=== PATIENT | female | born 1990 | race Caucasian/White ===

== ENCOUNTER 2024-07-20 08:23 | Outpatient (CLI) | payer BC, SELFPAY ==
--- NOTE | ~2024-07-20 | US_ITS ---
EXAMINATION: US soft tissue head and neck DATE: 07/20/2024 08:44 INDICATION: Posterior neck mass. Abnormal weight gain. TECHNIQUE: Multiple grayscale and Doppler ultrasound images of the head and neck were obtained. COMPARISON: None FINDINGS: In the posterior neck, there is a 5.1 x 1.5 x 5.5 cm subcutaneous mass is isoechoic to norm al subcutaneous fat, consistent with a lipoma. IMPRESSION: 1. 5.5 cm subcutaneous mass in the posterior neck, likely a lipoma. Reviewed, dictated and finalized at location A. SSIONS CLINICIAN
== END 2024-07-20 08:24 | disposition home or self-care (01) ==
LOC: MICIMG 08:23
PROVIDERS: PCP Family Medicine; Visit Provider Student in an Organized Health Care Education/Training Program
DX: R63.5 Abnormal weight gain (principal)
CPT/HCPCS: 76536

== ENCOUNTER 2025-05-07 02:14 | Day surgery (SDC) | payer BC, SELFPAY ==
[2025-05-01 13:45] VITALS: BMI 32.7
--- NOTE | 2025-05-01 13:52 | PC.NURSE ---
Report to the Outpatient Waiting Room, entrance under the green pavilion located off [facility], at time _1000_ on date _[id number]_. Planned Procedure Time: _1200_.? Time changes happen often and if your time is changed the preop area will call you the afternoon before. - You and your visitor will be asked to self-screen and do not enter if you have any COVID symptoms. Please call surgeon if you need to reschedule. - A mask is optional within the hospital at this time. Patients may have clear liquids (water, carbonated beverages, clear teas, apple juice) until 3 hours prior to surgery with a maximum of 20 ounces. - No food from midnight until time of surgery and no smoking, or chewing tobacco (or any form of nicotine). No chewing gum, candy or mints. Take only the following medications with a SIP of water on the morning of surgery: __None____ DO NOT STOP ANY OF YOUR OTHER PRESCRIPTION MEDICATIONS PRIOR TO SURGERY EXCEPT THE FOLLOWING Hold all vitamins and supplements for 3 days per anesthesiologist. Medications to discontinue per physician Date to take last dose Please no make-up, nail paraguayan, hairspray, perfume, deodorant, or body powder the day of surgery.? No jewelry (including any body piercings) or valuables the day of surgery, leave them at home.? Please take a shower or bath the night before, or the morning of, surgery with an antibacterial soap.? Wear comfortable, loose fitting clothing.? - Jewelry must be removed prior to entering the operating room.? Rings and piercings that are not removed may be cut off. - The hospital will not accept responsibility for valuables.? - Please leave all valuables, including medications, at home the day of surgery. If you are going home after surgery, a licensed line haul driver must drive you home.? - NO public transportation without another adult if you receive anesthesia. - We recommend that an adult stay with you for 24 hours following discharge. - We also recommend that you do not drive, make important decision, drink alcoholic beverages, or take any drugs that were not prescribed by your health care provider for at least 24 hours after your discharge time. Follow any additional instructions given to you from your surgeon. Telephone instructions given to __Gwen___and asked if any additional questions and then verbalized understanding. Patient advised to call surgeon office or pre surgery nurse liaison [phone] if any additional questions.
[2025-05-07] VITALS (7 sets, daily range): BP systolic 99–126; BP diastolic 58–80; PULSE 78–97; RESP 16–18; TEMP 36.2; O2SAT 98–100
--- OUTSIDE RECORDS SUMMARY | 2025-05-07 02:17 | XMS_ITS | Clinical Summary ---
Author Organization [facility] Address [address] [place] [address] Phone Care Team Providers Care Automatic Teller Machine Servicer Name Role Phone Unavailable Primary Care Provider Unavailabl e Immunizations Immunization Administration Dates Next Due Covid-19, Mrna, Lnp-s, Pf, 30 Mcg/0.3 Ml Dose (Oly langford) 06/13/2021 Social History Tobacco Use Types Packs/Day Years Used Date Smoking Tobacco: Never Assessed Comments Unknown Sex and Gender Information Value Date Recorded Sex Assigned at Not on file Legal Sex Unknown 03/09/2020 11:31 AM CDT Gender Identity Not on file Sexual Orientation Not on file Plan of Treatment Health Maintenance Due Date Last Done Comments Hepatitis C Virus (HCV) Screening 1990 TdaP Immunization 1990 Hepatitis B Immunization (1 of 3 - 19+ 3-dose series) 11/05/2007 Human Papillomavirus (HPV) Immunization (1 - 3-dose SCDM series) 11/05/2015 SARS-COV-2 Immunization (2023- season) 2024 06/13/2021, 11/21/2020, 10/10/2020 Influenza Immunization (#1) 2025 Respiratory Syncytial Virus (RSV) Immunization (Adult) (1 - 1-dose 75+ series) 11/05/2063 Meningococcal Immunization (ACWY) Aged Out No longer eligible b ased on patient's age to complete this topic Pneumococcal Immunization Combined Aged Out No longer eligible b ased on patient's age to complete this topic Rotavirus Immunization Aged Out No lo nger eligible based on patient's age to complete this topic
--- OUTSIDE RECORDS SUMMARY | 2025-05-07 02:17 | XMS_ITS | Clinical Summary ---
Author Organization [facility] Address [address] [place] [address] Care Team Providers Care Grinding Machine Tender Name Role Phone Katie Quintero MD Primary Care Provider [phone] Source Comments [employer] [facility],non-owned Affiliates and Associated Physician Practices is amultiple site organization consisting of ambulatory clinics and hospital sitesin [place], [place], [place] and [place]. This disclosure is being madepursuant to the Care Everywhere program and may not contain all information available regarding this patient. Last updated 18[employer] Allergies No known active allergies Medications * Be aware that medications may not be up to date on this document. Alwaysverify current medications with the patient. VALACYCLOVIR HCL PO Active Social History Tobacco Use Types Packs/Day Years Used Date Smoking Tobacco: Never Comments Unknown Sex and Gender Information Value Date Recorded Sex Assigned at Not on file Legal Sex Female 8:53 AM RENTAL COUNTER CLERK Gender Identity Not on file Sexual Orientation Not on file Last Filed Vital Signs Vital Sign Reading Time Taken Comments Blood Pressure 108/76 03/09/2017 3:23 PM CDT Pulse 90 03/09/2017 3:23 PM CDT Temperature 36.8 C (98.2 F) 03/09/2017 3:23 PM CDT Respiratory Rate 16 10/13/2016 9:29 AM RENTAL COUNTER CLERK Oxygen Saturation 95% 03/09/2017 3:23 PM CDT Inhaled Oxygen Concentration - - Weight 79.8 kg (176 lb) 03/09/2017 3:23 PM CDT Height 165.1 cm (5' 5) 03/09/2017 3:23 PM CDT Body Mass Index 29.29 03/09/2017 3:23 PM CDT Plan of Treatment Health Maintenance Due Date Last Done Comments HIV SCREENING 11/05/2003 HEPATITIS C SCREENING 10/31/2006 DTAP/TDAP/TD VACCINES (1 - Tdap) 11/05/2007 HEPATITIS B VACCINE (1 of 3 - 19+ 3-dose series) 11/05/2007 HPV VACCINE (1 - 3-dose SCDM series) 11/05/2015 DEPRESSION SCREENING 08/30/2024 COVID-19 VACCINE (1 - 2023-2 5 season) 2025 INFLUENZA VACCINE (#1) 2025 ZOSTER VACCINE (1 of 2) 2038 HIB VACCINE Aged Out No longer eligi ble based on patient's age to complete this topic MENINGOCOCCAL (Group B) VACC INE SHARED DECISION-MAKING Aged Out No longer eligibl e based on patient's age to complete this topic MENINGOCOCCAL GROUPS A/C/Y/W VACCINE Aged Out No longer eligible b ased on patient's age to complete this topic PNEUMOCOCCAL VACCINE Aged Out No long er eligible based on patient's age to complete this topic Insurance [email or web address] Care Teams Grinding Machine Tender Relationship Specialty Start Date End Date Katie Quintero MD [address] [place] [address] PCP - General Family Medicine 10/13/16
--- OUTSIDE RECORDS SUMMARY | 2025-05-07 02:17 | XMS_ITS | Clinical Summary ---
Author Organization [facility] Address [address] [place] [address] Phone Care Team Providers Care Vp Software Support Name Role Phone Katie Quintero MD Primary Care Provider [phone] Christine Diehl MD Unavailable [phone] Allergies No known active allergies Medications 32-jzng-wdmoqr 1-dha (PNV-DHA) 27 mg iron-1 mg -300 mg capsule take 1 capsule by oral route every day 0 0 7 Active Additional Information Patient taking differently: 1 capsule oral Nightly, Reported on 02/01/2022 montelukast (SINGULAIR) 10 mg tablet Take 10 mg by mouth nightly 1 Active budesonide (RHINOCORT AQUA) 32 mcg/actuation nasal spray Administer 1 spray into each nostril nightly 1 Active ELDERBERRY FRUIT AND FLOWER ORAL Take by mouth nightly 1 Active docusate sodium (COLACE) 100 mg capsuleIndicati ons:constipatio n Take 100 mg by mouth nightly Active levonorgestreL (MIRENA) IUD 1 each by intrauterine route once WE SUPPLIED THE DEVICE 03/27/2022 [facility]:[id number] LOT: [id number] EXP: 2 03/27/20 28 Active Active Problems Patient Care Coordination No te Formatting of this note migh t be different from the original. [facility] Anomaly scan 4-20-18 @ 2:30 pt aware Problem Noted Date Diagnosed Date 40 weeks gestation of 01/30/2022 Herpes simplex virus (HSV) infection 01/13/2014 Overview (12/04/2016): HERPES SIMPLEX NOS Term Immunizations Immunization Administration Dates Next Due Influenza, Quadrivalent, Spl it, Preservative Free, Intramuscular 05/16/2018 Tdap 12/26/2021,04/15/2018 Surgical History Surgery Date Site/Laterality Comments WISDOM TOOTH EXTRACTION Right Medical History Medical History Date Comments Hx Other Medical Seasonal allerg ies History of cold sores Anemia Anxiety Family History Medical History Relation Name Comments Coronary artery disease Maternal Grandfather Coronary artery disease; Relation Name Status Comments Maternal Grandfather Social History Tobacco Use Types Packs/Day Years Used Date Smoking Tobacco: Never Smokeless Tobacco: Never Tobacco Cessation:Counseling Given: Not Answered Alcohol Use Standard Drinks/Week Comments No 0 (1 standard drink = 0.6 oz pur e alcohol) [place] Depression Scale Answer Date Recorded [place] Depression Scale Total 5 02/01/2022 The thought of harming myself has occurred to me . Never 02/01/2022 Comments No Sex and Gender Information Value Date Recorded Sex Assigned at Not on file Legal Sex Female 2:08 AM ONLINE ACTIVIST Gender Identity Female 05/02/2021 1:46 PM CDT Sexual Orientation Straight 05/02/2021 1: 46 PM CDT Obstetrics History Para Term AB IAB SAB Ectopic Multiple Livin g Live Births 3 2 2 1 1 0 2 2 Date Outcome GA Total Labor Labor/2nd/3rd Weight Sex Type Anes PTL Radha A1 A5 Name Clin 2017 Term 40w 1d 7h 25m 6h 08m/1h 10m/0h 07m 4.1 kg (9 lb 0.6 oz) M Vag-S pont Epidur al N Livin g 7 7 FARHAN RUTLEDGE Christ ine M., MD Delivery Location:[facility] Facil [facility] ([facility]) 1 SAB 4w0 d 2021 Term 39w 4d 0h 40m 0h 34m/0h 06m 4.4 kg (9 lb 11.2 oz) M Vag-S pont Epidur al N Livin g 7 9 FARHAN RUTLEDGE, Robb Pagan MD Complications:Shoulder Dysto ioana Delivery Location:This Facil ity ([facility]) Last Filed Vital Signs Vital Sign Reading Time Taken Comments Blood Pressure 109/77 12/26/2024 7:24 PM CDT Pulse 109 12/26/2024 7:24 PM CDT Temperature 37.2 C (99 F) 12/26/2024 7:24 PM CDT Respiratory Rate 16 12/26/2024 7:24 PM CDT Oxygen Saturation 97% 12/26/2024 7:24 PM CDT Inhaled Oxygen Concentration - - Weight 88.7 kg (195 lb 8 oz) 12/26/2024 7:24 PM CDT Height 162.6 cm (5' 4.02) 12/26/2024 7:24 PM CD T Body Mass Index 33.54 12/26/2024 7:24 PM CDT Plan of Treatment Health Maintenance Due Date Last Done Comments Hepatitis C Screening 1988 Varicella Vaccines (1 of 2 - 13+ 2-dose series) 2001 Hepatitis B Screening 2006 HPV Vaccines (1 - 3-dose SCDM series) 11/05/2015 Regular Well Visit/Exam 18-64 01/30/2022 01/30/2021 Depression Screening 02/01/2023 02/01/2022 Cervical Cancer Screening 03/18/20232021, 01/30/2021, 06/27/2018, Additional history exists Influenza Vaccine (#1) 2025 , 05/16/2018, 05/31/2017 DTaP/Tdap/Td Vaccine (3 - Td or Tdap) 12/27/2031 12/26/2021, 04/15/2018 Pneumococcal vaccine <65 Aged Out No longer eligible based on patient's age to complete this topic Procedures Procedure Name Priority Date/Time Associated Diagnosis Comments PAP WITH REFLEX TO HIGH RISK HPV Routine 03/18/2022 1:42 PM CDT Screening for malignant neoplasm of the cervix from Last 3 Months or Most Recently Relevant to Health Maintenance Results * Pap with reflex to High Risk HPV (03/18/2022 1:42 PM CDT) Thin prep (Pap test) 03/18/2022 1:42 PM CDT 03/22/2022 8:58 AM CDT Narrative PATHOLOGY [facility] - 03/25/2022 9:14 AM CDT EPIC results best viewed via link to PDF [address] [address] Tele: Marcy Mendoza MD - Home Appliance Tech CYTOLOGY REPORT Note to Patients: This report may contain a detailed description of human tissue sent by a health care provider to the laboratory for pathologic evaluation. The content of this report is essential for diagnosis and may provide important critical findings. This information may be unfamiliar to patients to review without a medical professional present. It is advised that the patient review this report in the presence of a health care provider who can answer questions and explain the details. Patient Name: MARYCRUZ OMALLEY Address: [address] [place] [address] Gender: F : 1990 (Age: 31) Service: Location: N : [id number] [facility] #: [id number] Patient Type: [facility] [place] SPECIMEN Taken: 03/18/2022 Reported: 03/25/2022 Physician(s): Christine Diehl M.D. FINAL DIAGNOSIS: Specimen Type: - ThinPrep Pap w/ reflex HPV Statement of Specimen Adequacy: Source: Cervical/Endocervical - Satisfactory for evaluation - Case screened using computer assisted imaging technology General Categorization: - Negative for intraepithelial lesion or malignancy xbb/03/25/2022 09:14EMILY Maldonado (ASCP) Report Reviewed and Electronically Signed By EMILY Maldonado (ASCP)Clerical Data Follow A; [id number] CLINICAL DIAGNOSIS AND HISTORY Menstrual History: REPORT IMAGES AND/OR SCANNED DOCUMENTS ONLY VIEWABLE IN PDF FORMAT The Pap test is a screening test used to aid in the detection of cervical cancer and its precursors. It should not be the sole means by which malignant and premalignant lesions are diagnosed. Both false negative and false positive results may occur. It also has poor sensitivity for the detection of endometrial lesions and should not be used to evaluate suspected endometrial abnormalities. For these reasons it is most important to obtain Pap tests at regular intervals, as recommended by your physician or nurse practitioner. us Christine Diehl MD LAB CYTOLOGY ORDERABLES Fin al Result PATHOLOGY [facility] Laboratory [address] [place] [address] from Last 3 Months or Most Recently Relevant to Health Maintenance Insurance [facility] Advance Directives For more information, please contact: [phone] * Full Code (Latest Code Status on File) Date Activated Date Inactivated Comments 01/30/2022 8:00 PM 02/01/2022 4:05 PM * Full Code Date Activated Date Inactivated Comments 01/30/2022 2:42 AM 01/30/2022 8:00 PM Full CPR in ca se of cardiopulmonary arrest * Full Code Date Activated Date Inactivated Comments 05/14/2018 5:46 AM 05/16/2018 6:14 PM * Full Code Date Activated Date Inactivated Comments 05/13/2018 1:43 AM 05/14/2018 5:46 AM Full CPR in case of cardiopulmonary arrest Care Teams Vp Software Support Relationship Specialty Start Date End Date Katie Quintero MD PCP - General 01/06/13 Christine Diehl MD [address] [address] Consulting Physician Obstetrics and Gynecology 10/06/21
--- OUTSIDE RECORDS SUMMARY | 2025-05-07 02:17 | XMS_ITS | Encounter Summary ---
Author Organization [facility] Address [address] [place] [address] Care Team Providers Care Accreditation Specialist Name Role Phone Katie Quintero MD Primary Care Provider [phone] Encounter Details Date Type Department Care Team (Late st Contact Info) Description 03/08/2020 Lab Requisition [facility] [address] [place] [address] Michael Wilson MD Social History Tobacco Use Types Packs/Day Years Used Date Smoking Tobacco: Never Comments Unknown Sex and Gender Information Value Date Recorded Sex Assigned at Not on file Legal Sex Female 8:53 AM CAMPGROUND ATTENDANT Gender Identity Not on file Sexual Orientation Not on file documented as of this encounter Plan of Treatment Not on file documented as of this encounter Procedures Procedure Name Priority Date/Time Associated Diagnosis Comments SARS-COV-2 (COVID-19) IN HOUSE Routine 03/07/2020 9:46 AM CDT documented in this encounter Results * SARS-COV-2 (COVID-19) IN HOUSE (03/07/2020 9:46 AM CDT) COVID-19 PCR Not detected Not detected, Invalid 03/08/2020 6:15 PM CDT [facility] Microbiology SPECIMEN FROM NASOPHARYNGEAL STRUCTURE / Unknown Collection / Unknown 03/07/2020 9:46 AM CDT 03/08/2020 12:24 PM CDT Narrative [facility] - 03/08/2020 6:15 PM CDT This nucleic acid amplification assay performance was validated by [facility]. This test has been authorized by the Food and Drug administration (FDA)under an Emergency Use Authorization (EUA). This test has been validated in accordance with the FDA's guidance document Policy for Diagnostic Testing in Laboratories Certified to perform High Complexity Testing under CLIA prior to Emergency Use Authorization for Coronavirus Disease-2019 during the Public Health Emergency issued on October 28, 2019. FDA independent review of this validation is pending. This test is only authorized for the duration of time the declaration that circumstances exist justifying the authorization of emergency use of in vitro diagnostic tests for detection of SARS-CoV-2 virus and/or diagnosis of COVID-19 infection under section 564(b)(1) of the Act, 21 U.S.C 360bbb-3 (b)(1), unless the authorization is terminated or revoked sooner. Michael Wilson MD LAB - MICROBIOLOGY ORDERABL ES Final Result [facility] [address] [place], [place] [id number] [place] [address] documented in this encounter Visit Diagnoses Not on filedocumented in this encounter Additional Health Concerns Infection Onset Date Last Indicated Resolved Time COVID-19 Under Investigation 03/08/2020 03/07/2020 03/08/2020 6:15 PM CDT documented as of this encounter Care Teams Accreditation Specialist Relationship Specialty Start Date End Date Katie Quintero MD [address] [place] [address] PCP - General Family Medicine 10/13/16 documented as of this encounter
--- OUTSIDE RECORDS SUMMARY | 2025-05-07 02:17 | XMS_ITS | Encounter Summary ---
Author Organization [facility] Address [address] [place] [address] Phone Care Team Providers Care Aerial Crop Duster Name Role Phone Unavailable Primary Care Provider Unavailabl e Encounter Details Date Type Department Care Team (Late st Contact Info) Description 08/28/2022 Lab Requisition [facility] [address] [place] [address] Jerry Moss MD [address] [place] [address] [address] [place] [place] [address] Encounter for screening for COVID-19 Social History Tobacco Use Types Packs/Day Years [...] Name Priority Date/Time Associated Diagnosis Comments SARS-COV-2 BY MOLECULAR Routine 08/28/2022 8:35 AM DIRECTOR OF RESEARCH CENTER Encounter for screening for COVID-19 documented in this encounter Results * SARS-COV-2 BY MOLECULAR (08/28/2022 8:35 AM DIRECTOR OF RESEARCH CENTER) SARSCOV2 NOT DETECTED (Referen ce Range for this test is Not Detected ) [facility] THER[facility] FAST DX 08/29/2022 12:21 AM DIRECTOR OF RESEARCH CENTER [facility] Comment:This test was perfor med by a RT-PCR method. Other Non-Phlebotomy Collection / Unknown 08/28/2022 8:35 AM DIRECTOR OF RESEARCH CENTER 08/28/2022 1:19 PM DIRECTOR OF RESEARCH CENTER Narrative [facility] - 08/29/2022 12:21 AM DIRECTOR OF RESEARCH CENTER Authorized Fact Sheets about this test for providers and patients are available at: https://www.fda.gov/medical-devices/zfuonjmcz-gbipwyydim-jkxfqgk-devices/emergen -us e-authorizations us Jerry Moss MD MICROBIOLOGY - GENERAL ORDERAB LES Final Result [facility] [address] [place] [address], [place] documented in this encounter Visit Diagnoses Diagnosis Encounter for screening for COVID-19 documented in this encounter Additional Health Concerns Infection Onset Date Last Indicated Resolved Time COVID - 19 08/28/2022 09/10/2022 09/20/2022 12:1 6 AM DIRECTOR OF RESEARCH CENTER documented as of this encounter
--- OUTSIDE RECORDS SUMMARY | 2025-05-07 02:17 | XMS_ITS | Encounter Summary ---
Author Organization [facility] Address [address] [place] [address] Phone Care Team Providers Care Sourcing Intern Name Role Phone Unavailable Primary Care Provider Unavailabl e Encounter Details Date Type Department Care Team (Late st Contact Info) Description 09/10/2022 Lab Requisition [facility] [address] [place] [address] Jerry Moss MD [address] [place] [address] [address] [place], [place] [id number] Encounter for screening for COVID-19 Social History [...] Associated Diagnosis Comments SARS-COV-2 BY MOLECULAR Routine 09/10/2022 8:37 AM COLD WORKING INSPECTOR Encounter for screening for COVID-19 documented in this encounter Results * SARS-COV-2 BY MOLECULAR (09/10/2022 8:37 AM COLD WORKING INSPECTOR) SARSCOV2 NOT DETECTED (Referen ce Range for this test is Not Detected ) [facility] THERMOFISHER FAST DX 09/11/2022 6:43 AM COLD WORKING INSPECTOR [facility] Comment:This test was perfor med by a RT-PCR method. Other Non-Phlebotomy Collection / Unknown 09/10/2022 8:37 AM COLD WORKING INSPECTOR 09/10/2022 11:36 AM COLD WORKING INSPECTOR Narrative [facility] - 09/11/2022 6:43 AM COLD WORKING INSPECTOR Authorized Fact Sheets about this test for providers and patients are available at: https://www.fda.gov/medical-devices/hfwxzymnw-fubpihqgpx-nzncbyz-devices/emergen -us e-authorizations us Jerry Moss MD MICROBIOLOGY - GENERAL ORDERAB LES Final Result [facility] [address] [place] [address], [place] documented in this encounter Visit Diagnoses Diagnosis Encounter for screening for COVID-19 documented in this encounter Additional Health Concerns Infection Onset Date Last Indicated Resolved Time COVID - 19 08/28/2022 09/10/2022 09/20/2022 12:1 6 AM COLD WORKING INSPECTOR documented as of this encounter
--- OUTSIDE RECORDS SUMMARY | 2025-05-07 02:17 | XMS_ITS | Encounter Summary ---
Author Organization [facility] Address [address] [place] [address] Phone Care Team Providers Care Coil Taper Name Role Phone Katie Quintero MD Primary Care Provider [phone] Christine Diehl MD Unavailable [phone] Encounter Details Date Type Department Care Team (Latest Contact Info) Description 12/17/2017 Orders Only [facility] CONVERSION Scanning, Provider Social History Tobacco Use Types Packs/Day Years Used Date Smoking Tobacco: Never Smokeless Tobacco: Never Comments Yes Sex and Gender Information Value Date Recorded Sex Assigned at Not on file Legal Sex Female 2:08 AM WATERPROOFER Gender Identity Female 05/02/2021 1:46 PM CDT Sexual Orientation Straight 05/02/2021 1: 46 PM CDT documented as of this encounter Plan of Treatment Not on file documented as of this encounter Procedures Procedure Name Priority Date/Time Associated Diagnosis Comments OBSTETRIC/GYNECOLOGY ULTRASONOGRAPHY REPORT 12/17/2017 4:10 PM CDT documented in this encounter Results * OBSTETRIC/GYNECOLOGY ULTRASONOGRAPHY REPORT (12/17/2017 4:10 PM CDT) Anatomical Region Laterality Modality Ultrasound us Provider Scanning IMG OB US PROCEDURES Final Res ult documented in this encounter Visit Diagnoses Not on filedocumented in this encounter Additional Health Concerns Infection Onset Date Last Indicated Resolved Time COVID: Suspected 12/26/2024 12/26/2024 12/26/2024 7:48 PM CDT documented as of this encounter Care Teams Coil Taper Relationship Specialty Start Date End Date Katie Quintero MD PCP - General 01/06/13 Christine Diehl MD [id number] [address] Consulting Physician Obstetrics and Gynecology 10/06/21 documented as of this encounter
--- OUTSIDE RECORDS SUMMARY | 2025-05-07 02:17 | XMS_ITS | Encounter Summary ---
Author Organization [facility] Address [address] [place] [address] Phone Care Team Providers Care Material Distributor Name Role Phone Unavailable Primary Care Provider Unavailabl e Encounter Details Date Type Department Care Team (Late st Contact Info) Description 09/03/2022 Lab Requisition [facility] [address] [place] [address] Jerry Moss MD [address] [place] [address] [address] [place], [place] [id number] Encounter for screening for COVID-19 Social History [...] Associated Diagnosis Comments SARS-COV-2 BY MOLECULAR Routine 09/03/2022 8:40 AM ATHLETE MANAGER Encounter for screening for COVID-19 documented in this encounter Results * SARS-COV-2 BY MOLECULAR (09/03/2022 8:40 AM ATHLETE MANAGER) SARSCOV2 NOT DETECTED (Referen ce Range for this test is Not Detected ) [facility] THERMOFISHER FAST DX 09/04/2022 12:19 AM ATHLETE MANAGER [facility] Comment:This test was perfor med by a RT-PCR method. Other Non-Phlebotomy Collection / Unknown 09/03/2022 8:40 AM ATHLETE MANAGER 09/03/2022 11:27 AM ATHLETE MANAGER Narrative [facility] - 09/04/2022 12:19 AM ATHLETE MANAGER Authorized Fact Sheets about this test for providers and patients are available at: https://www.fda.gov/medical-devices/bxfnwuzwg-wypusmzjyi-eknfazd-devices/emergen -us e-authorizations us Jerry Moss MD MICROBIOLOGY - GENERAL ORDERAB LES Final Result [facility] [address] [place] [address], [place] documented in this encounter Visit Diagnoses Diagnosis Encounter for screening for COVID-19 documented in this encounter Additional Health Concerns Infection Onset Date Last Indicated Resolved Time COVID - 19 08/28/2022 09/10/2022 09/20/2022 12:1 6 AM ATHLETE MANAGER documented as of this encounter
[2025-05-07] MEDS: LACTATED RINGERS 1,000 ML 30 ML IV CONT ×2 (10:30→13:21)
--- NOTE | 2025-05-07 11:11 | P.PNAN_ITS ---
Anes - Initial Pre Proc Eval Procedure: Operation Date: 05/07/25 12:00 Proposed Procedures p Excision Right Upper Back/ Shoulder Subcutaneous Mass - Dany Nelson MD Date/Time: 05/07/25 11:11 Surgeon: Dany Nelson MD Pre Op Diagnosis: sub-q mass right upper back Patient Data Age: 34 Gender: F Height: 1.63 m Weight: 90 kg Last Vital Signs Temp 36.2 C L 05/07/25 10:10 Pulse 88 05/07/25 10:10 Resp 16 05/07/25 10:10 BP 114/72 05/07/25 10:10 Pulse Ox 100 05/07/25 10:10 O2 Del Method Room Air 05/07/25 10:10 Allergies Allergy/AdvReac Type Severity Reaction Status Date / Time No Known Allergies Allergy Verified 05/07/25 11:08 Home Medications ?Medication ?Instructions ?Recorded ?Confirmed ?Type valacyclovir 500 mg tablet 500 mg PO DAILY PRN anxiety #90 10/22/24 05/01/25 Rx tabs fexofenadine 180 mg tablet 180 mg PO DAILY 05/01/25 History (Pavithra Allergy) Patient hx anesthesia problems: none Family hx anesthesia problems: none Results Review: All pre-operative results and documents have been reviewed as part of the pre- operative evaluation. [facility] Past Medical History Medical History (Updated 04/05/25 @ 15:24 by Teri Jacobo) Anxiety FH: thyroid disease Depression HSV (herpes simplex virus) infection Family History Family History Other Family history of arthritis Family history of migraine headaches Social History Social History (Updated 04/05/25 @ 14:49 by Cathie Rockwell CMA) Smoking status: Never smoker Second hand tobacco smoke exposure: No Alcohol intake: never Substance use: never Substance use type: does not use Lack of Transportation: No Lack of Food: Never True Current Housing: I Have Housing Concerned About Future Housing: No Difficulty Paying Gas/Electric Bills: No Difficulty Paying for Meds: No Currently Unemployed: No Education: Master's Degree or Higher Difficulty w/ Childcare or Family Care: No Living arrangements: with family Occupation/Education: occupation Additional occupation/education comments: [employer] Gender identity (if verbalized by the patient): Female Spiritual care concerns: No Anes - Eval Final PreProcedure Day of Procedure 05/07/25 11:11 Patient weight: obese Heart: regular rate and rhythm Lungs: clear to auscultation Airway: Mallampati scale class II Neurological: alert and oriented Last oral intake: >/= 8 hours ASA classification: II Emergent: no Anesthetic plan: proceed Anesthesia type and monitoring: general LMA and standard monitoring Results Review: All pre-operative results and documents have been reviewed as part of the pre- operative evaluation. Informed Consent: The patient's anesthetic plan and its attendant risks and benefits were discussed with the patient/family/POA. Questions were solicited and answers provided to the satisfaction of the patient/family/POA.
--- NOTE | 2025-05-07 12:06 | PM.IMHP ---
H&P: HPI History of Present Illness Date/Time: 05/07/25 12:06 Chief Complaint: Right upper back subcutaneous mass Narrative: Ms. Omalley presents to the office at the request of Dr. Katie Quintero for evaluation of a right upper back mass. Has been present for at least 9 months. Soft tissue ultrasound done in 06/2024 showed 5.5 cm subcutaneous mass in the posterior neck. Has noticed increase in size and has developed associated tenderness to deep palpation or heavy pressure. No history of redness, drainage, or infection. Review of Systems Review of Systems: The remainder of the review of systems to include constitutional, HEENT, cardiovascular, respiratory, GI, , integumentary, musculoskeletal, endocrine, immunologic, hematologic, psychiatric, and neurologic are all negative except for which is mentioned above in the HPI. [facility] Past Medical History Medical History Anxiety FH: thyroid disease Depression HSV (herpes simplex virus) infection Family History Family History Other Family history of arthritis Family history of migraine headaches Social History Social History Smoking status: Never smoker Second hand tobacco smoke exposure: No Alcohol intake: never Substance use: never Substance use type: does not use Lack of Transportation: No Lack of Food: Never True Current Housing: I Have Housing Concerned About Future Housing: No Difficulty Paying Gas/Electric Bills: No Difficulty Paying for Meds: No Currently Unemployed: No Education: Master's Degree or Higher Difficulty w/ Childcare or Family Care: No Living arrangements: with family Occupation/Education: occupation Additional occupation/education comments: [employer] Gender identity (if verbalized by the patient): Female Spiritual care concerns: No Meds Home Medications and Allergies Home Medications ?Medication ?Instructions ?Recorded ?Confirmed ?Type valacyclovir 500 mg tablet 500 mg PO DAILY PRN anxiety #90 10/22/24 05/01/25 Rx tabs fexofenadine 180 mg tablet 180 mg PO DAILY 05/01/25 05/01/25 History (Pavithra Allergy) Allergies Allergy/AdvReac Type Severity Reaction Status Date / Time No Known Allergies Allergy Verified 05/07/25 11:08 Vital Signs Vital Signs - 24 hr 05/07/25 10:10 Temperature 36.2 C L Pulse Rate 88 Respiratory Rate 16 Blood Pressure 114/72 Pulse Oximetry 100 Oxygen Delivery Room Air Exam Const: General: comfortable and no acute distress HENMT: Ears: TM's normal bilaterally Face/Nose/Sinus: Normal nares present Mouth: Yes moist mucous membranes Eyes: General: appearance normal, both eyes and all related structures Sclera: sclerae normal Pupils: Equal, round and reactive pupils present EOM: EOMs intact bilaterally Neck: Neck: supple and no JVD Resp: Effort & Inspection: normal respiratory effort Auscultation: clear to auscultation bilaterally Cardio: Rate: regular rate Rhythm: regular rhythm GI: GI Palp: Yes Soft to palpation, No Firmness to palpation present (GI), No Tenderness to palpation present (GI), No Guarding due to palpation present (GI) and No Hernia present Skin: Other: Right upper back/shoulder SQ mass measuring 6.0 x 5.0cm. Nontender. Neuro: General: gait normal Speech: normal speech Motor exam (neuro): 5/5 motor strength present throughout Sensory Exam: normal sensation Extrem: General: normal to inspection Psych: Mental Status: mental status grossly normal Affect: normal affect Assessment and Plan Assessment and plan (1) Mass of subcutaneous tissue of back: Code(s): R22.2 - Localized swelling, mass and lump, trunk Status: Acute Assessment and Plan: Prior to the patients visit, I reviewed the office note of Dr. Quintero. Patient has a enlarging, increasingly symptomatic right upper back/shoulder mass. Recommend excision of the right upper back/shoulder subcutaneous mass to be performed in the OR under general anesthesia. The procedure was discussed in detail including description, risks, benefits, post-operative restrictions, recovery, and expected outcome. Questions answered and she would like to proceed as discussed.
--- NOTE | 2025-05-07 12:09 | WPDHPUPDATE1 ---
History and Physical Update Update Date/Time: 05/07/25 12:09 History and Physical has been reviewed, including an updated exam of the patient. There are NO changes in the patient's condition. Risks, benefits, and alternatives have been discussed and questions answered. Patient agrees to proceed with procedure.
[2025-05-07] MEDS: ceFAZolin 2 GM in SODIUM CHLORIDE 0.9% IV 50 ML 100 ML IVPB (12:15)
[2025-05-07] MEDS: LIDO 1%/EPINEPHRINE/PF 1:200,000 30 ML VIAL XX (12:40)
--- NOTE | 2025-05-07 12:49 | S_PTH ---
PATIENT: Shannan Omalley LOC: [facility] U#:[id number] AGE/SX: 34/F ROOM: RE05/07/[address]: Dany Nelson MD : 1990 BED: DIS: 05/07/2025 SPEC #: [id number] RECD: 05/07/25 13:25 STATUS: JETT RE #: [id number] BEN: 05/07/25 12:[address]: Dany Nelson DEPT: [facility] Surgical RECD BY: Floyd Corrigan ENTERED: 05/07/25 13:26 SP TYPE: Surgical OTHR DR: Katie QuinteroMD Tissues: A - Mass Procedures: Hematoxylin and Eosin Stain Gross and Microscopic Level 3
[2025-05-07] MEDS: KETOROLAC 15 MG/ML VIAL (*BKC) IV PUSH (12:53)
--- NOTE | 2025-05-07 13:14 | P.OP_ITS ---
Procedure Note - Detailed Date of Procedure 05/07/25 Pre-op Diagnosis sub-q mass right upper back Post-op Diagnosis Other (Right upper back lipoma) Procedure Performed Excision of right upper back lipoma Surgeon Dany Nelson MD Shoe Reconditioner Carolyn Bowers, WAREHOUSE RECEIVER Anesthesia General Indications Patient is a 34-year-old female presented with a slowly enlarging subcutaneous mass in the right upper back region near the base the neck. She presents now for excision of the mass. Findings Patient had a 5x5x1.5cm well-circumscribed lipoma extending all the way down to the underlying fascia of the muscle. There was no extension of the lipoma und erneath the fascia. Description of Procedure After informed consent was obtained patient brought to the operating room she was placed under general LMA anesthesia and then turned onto the right lateral decubitus position. Care was taken make sure all the pressure points were well padded. The area the right upper back region and base the neck was then prepped and draped usual sterile fashion. Time-out was then performed correctly identifying the patient as well as procedure to be performed. She was given perioperative IV antibiotics. I then anesthetized the area overlying the mass utilizing 1% lidocaine mixed with 0.5% Marcaine 50 50 mixture some epinephrine. I then made a transverse incision there with a scalpel dissection carried down through the dermis skin with a scalpel. Dissection was then carried down through the subcutaneous tissues and then I encountered what appeared to be the capsule to the lipomatous mass. The lipoma extended deeply down to the anterior fascia of the underlying muscle. There was no extension of the lipoma underneath the fascia. Utilizing a combination of blunt finger and electrocautery dissection I completely excised out the lipoma from the surrounding tissues. I measured it was 5x5x1.5cm. It was sent to pathology for examination I then irrigated out with sterile saline solution hemostasis was good. There was no significant bleeding. I then proceeded to inject more local anesthetic mixture in the subcutaneous tissues and in the sub fascial regions. The incision was then closed utilizing interrupted 2-0 Vicryl sutures in the deeper subcutaneous tissues. This was followed by layer of interrupted 3-0 Vicryl sutures in the more superficial subcu tissues. The skin edges were then approximated utilizing a running subcuticular 4 Monocryl suture. The incision was then cleaned the skin glue was applied. The patient tolerated the procedure well no complications. All sponges, needles, and instrument counts were correct at the end procedure. EBL was _ 5 __cc. The patient was awakened and taken to recovery in stable and satisfactory condition. Implants None Estimated Blood Loss 5 Drains No Packing No Pathology Yes (Lipoma to pathology) Complications No immediate complications Condition Stable Disposition PACU [facility] Billing Surgery - Charge Forward: Surgery Billing
== END 2025-05-07 14:50 | disposition home or self-care (01) ==
PROVIDERS: PCP Family Medicine; Visit Provider Surgery
PROC: (CPT 21931; principal; 2025-05-07 12:00)
DX: D17.1 Benign lipomatous neoplasm of skin and subcutaneous tissue of trunk (principal)
CPT/HCPCS: 21931; 88304; J0690; A9270; J1100; J1200; J1885; J2003; J2004; J2250; J2405; J2704; J3010; J7120